=== PATIENT | male | born 1970 | race African-American/Black ===

== ENCOUNTER 2020-07-22 14:08 | Emergency (ER) | payer BC, SELFPAY ==
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
[2020-07-22 15:20] VITALS: BP 130/83; PULSE 90; RESP 16; TEMP 36.6
--- NOTE | 2020-07-22 18:01 | PC.NURSE ---
vitals were done by [facility] tech at 1520
== END 2020-07-22 15:00 | disposition home or self-care (01) ==
PROVIDERS: Emergency Provider Nurse Practitioner
DX: S50.12XA Contusion of left forearm, initial encounter (principal); W22.8XXA Striking against or struck by other objects, initial encounter
CPT/HCPCS: 73090; 99213; G0463